=== PATIENT | female | born 1980 | race Caucasian/White ===

== ENCOUNTER 2018-04-22 17:22 | Emergency (ER) | payer OTHER ==
[2018-04-22] MEDS ORDERED: predniSONE 20 MG TABLET PO STA (19:10)
[2018-04-22] MEDS ORDERED: diazePAM 5 MG TABLET PO STA (19:10)
[2018-04-22] MEDS ORDERED: HYDROcod/ACETAM 5/325 MG TABLET PO STA (19:10)
--- NOTE | 2018-04-22 19:12 | ED Physician Documentation ---
History of Present Illness - Stated complaint Stated Complaint: BILAT ARM NUMBNESS/NK PX - Chief complaint Chief Complaint: General - Additonal information Additional information: 37-year-old female with a history of chronic neck pain with herniated disc and radicular symptoms presents to the emergency department with complaints of pain and radicular symptoms. The patient reports her typical pain which is slightly worse than normal over the past several days. The patient reports her typical pain that radiates into her bilateral deltoids. The radicular symptoms occur intermittently. The patient denies fever, motor weakness, muscle loss, acute injury or relieving factors. Symptoms are described as moderate. The patient scheduled to see primary care tomorrow. The patient recently had an MRI of her neck. The patient is also going to be starting physical therapy. No other associated symptoms. No lower extremity symptoms Review of Systems Constitutional: denies: Fever, Chills Eyes: denies: Loss of vision, Decreased vision Ears: denies: Ear pain Nose: denies: Congestion Throat: denies: Sore throat Cardiac: denies: Chest pain / pressure Respiratory: denies: Cough : denies: Dysuria Musculoskeletal: reports: Neck pain. denies: Extremity pain Neurologic: reports: Numbness. denies: Generalized weakness, Focal weakness, Difficulty speaking, Near syncope, Confused, Head injury PD PAST MEDICAL HISTORY - Past Medical History Musculoskeletal: Other Other Past Medical History: neck pain - Past Surgical History Past Surgical History: No - Present Medications Home Medications: Ambulatory Orders Medication Instructions Recorded Confirmed Cyclobenzaprine [Flexeril] 10 mg PO TID PRN #20 tablet 04/22/18 HYDROcod/ACETAM 5/325 [[place] 5/325] 1 each PO Q6H PRN #15 tablet 04/22/18 predniSONE [Prednisone] 40 mg PO DAILY 4 Days #8 tablet 04/22/18 - Allergies Allergies/Adverse Reactions: Allergies Allergy/AdvReac Type Severity Reaction Status Date / Time No Known Drug Allergies Allergy Verified 04/22/18 19:19 - Social History Does the pt smoke?: Yes Smoking Status: Current every day smoker Does the pt drink ETOH?: No Does the pt have substance abuse?: No - Immunizations Immunizations are current?: Yes PD ED PE NORMAL - General General: Alert and oriented X 3, No acute distress - HEENT HEENT: Atraumatic, PERRL, EOMI, Ears normal - Neck Neck: Supple, no meningeal sign, No bony TTP, Other (The patient has tenderness to palpation in the paraspinal muscles of the neck, there is no midline tenderness and the patient appears to have normal range of motion of the neck. There is no swelling. There is no edematous changes, there is no erythematous changes. 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 The patient has normal lower extremity strength and normal sensation to light touch) Results - Vitals Vitals: Vital Signs - 24 hr 04/22/18 04/22/18 17:24 19:32 Temperature 36.6 C 36.5 C Heart Rate 110 H 88 Respiratory 14 16 Rate Blood Pressure 132/80 H 113/83 H O2 Saturation 100 98 Oxygen O2 Source Room air PD MEDICAL DECISION MAKING - ED course ED course: The patient has a history of recurrent cervical pain and radiculopathy. Presently there is no evidence of acute cauda equina which would necessitate emergent MRI. I did offer to have a CT scan performed but the patient declined. The patient is requesting symptomatic therapy and reports that she is following up with primary care tomorrow. I recommended a repeat MRI as an outpatient. The patient understands and agrees. I discussed warning signs and recommended returning to the emergency department immediately for worsening or any concerns - Sepsis Event Vital Signs: Vital Signs - 24 hr 04/22/18 04/22/18 17:24 19:32 Temperature 36.6 C 36.5 C Heart Rate 110 H 88 Respiratory 14 16 Rate Blood Pressure 132/80 H 113/83 H O2 Saturation 100 98 Oxygen O2 Source Room air Departure - Departure Disposition: 01 Home, Self Care Clinical Impression: Cervical radiculopathy Condition: Good Instructions: ED Cervical Radiculopathy Follow-Up: ANGELICA ANDRES DO [Primary Care Provider] - Tomorrow Prescriptions: Cyclobenzaprine [Flexeril] 10 mg PO TID PRN #20 tablet PRN Reason: Spasms HYDROcod/ACETAM 5/325 [[place] 5/325] 1 each PO Q6H PRN #15 tablet PRN Reason: Pain predniSONE [Prednisone] 40 mg PO DAILY 4 Days #8 tablet Comments: Please return to the emergency department for worsening symptoms or any concerns Discharge Date/Time: 04/22/18 19:33
[2018-04-22 19:33] VITALS: BP 113/83
== END 2018-04-22 19:33 | disposition home or self-care (01) ==
LOC: ED 17:22
DX: M54.12 Radiculopathy, cervical region (principal); F17.200 Nicotine dependence, unspecified, uncomplicated
CPT/HCPCS: 99283; A9270; J7512

== ENCOUNTER 2019-08-05 09:00 | Emergency (ER) | payer OTHER ==
[2019-08-05 09:09] VITALS: BP 109/72
--- NOTE | 2019-08-05 09:43 | ED Physician Documentation ---
History of Present Illness - Stated complaint Stated Complaint: BACK PX - Chief complaint Chief Complaint: Back Pain - Additonal information Additional information: This is a 39-year-old female with a history of back pain as well as herniated disks who presents with increased back pain. Yesterday she was brushing her teeth and she bent forward and she felt a pain and spasming in her right lower back/sacral area. The pain is worse when she does twisting movements or leans forward. And yesterday did radiate down her leg towards her foot and she had a little tingling in her foot, though this is resolved. She denies weakness. Worse with walking. No dysuria, no abdominal pain. No bowel or bladder incontinence or difficulty using the bathroom. She denies any history of cancer or bony lesions. This feels very similar to the back pain she had the past which responded well to conservative care. Review of Systems Constitutional: denies: Fever Musculoskeletal: reports: Back pain PD PAST MEDICAL HISTORY - Past Medical History Musculoskeletal: Other Other Past Medical History: Cervical disc herniation - Past Surgical History Past Surgical History: No - Present Medications Home Medications: Ambulatory Orders Medication Instructions Recorded Confirmed Cyclobenzaprine [Flexeril] 10 mg PO TID PRN #20 tablet 04/22/18 HYDROcod/ACETAM 5/325 [[place] 5/325] 1 each PO Q6H PRN #15 tablet 04/22/18 predniSONE [Prednisone] 40 mg PO DAILY 4 Days #8 tablet 04/22/18 Lidocaine Patch 5% [Lidoderm Patch] 1 each TOP DAILY PRN #7 patch 08/05/19 methocarbamoL [Methocarbamol] 500 mg PO TID PRN #15 tablet 08/05/19 - Allergies Allergies/Adverse Reactions: Allergies Allergy/AdvReac Type Severity Reaction Status Date / Time No Known Drug Allergies Allergy Verified 08/05/19 09:06 - Social History Does the pt smoke?: Yes Smoking Status: Current every day smoker Does the pt drink ETOH?: No Does the pt have substance abuse?: No - Immunizations Immunizations are current?: Yes PD ED PE NORMAL - Vitals Vital signs reviewed: Yes - General General: Alert and oriented X 3, No acute distress - HEENT HEENT: PERRL - Neck Neck: Supple, no meningeal sign - Cardiac Cardiac: RRR, No murmur - Respiratory Respiratory: Clear bilaterally - Abdomen Abdomen: Soft, Non distended - Back Back: Other (Normal external appearance, no lesions. No midline tenderness palpation in the right L5 region there is paraspinous tenderness. Cross straight leg raise test is positive for pain rating down the back. 5 out of 5 strength with ankle dorsiflexion plantarflexion hip flexion knee extension bilaterally. Sensation intact light touch overall all lower extremities. Pt ambulates independently with narrow based gait.) - Derm Derm: Warm and dry - Extremities Extremities: No deformity - Neuro Neuro: Alert and oriented X 3, No motor deficit, No sensory deficit, Normal speech - Psych Psych: Normal mood, Normal affect Results - Vitals Vitals: Vital Signs - 24 hr 08/05/19 09:06 Temperature 36.5 C Heart Rate 105 H Respiratory 14 Rate Blood Pressure 109/72 O2 Saturation 100 Oxygen O2 Source Room air PD MEDICAL DECISION MAKING - ED course ED course: Patient presents with back pain after a twisting type event. This is similar to past back pain which is responded well to conservative treatment. She has no red flagsno history of cancer, no bowel bladder symptoms, her neurologic exam is normal, she has no signs of infection, her age is <50, she has no midline tenderness or history of trauma. No urinary or abdominal symptoms. I discussed a trial of supportive care for her back discomfort, she has Flexeril at home, so we will try methocarbamol, and explained the she should not combine the methocarbamol and the Flexeril. I also recommended close primary care follow-up and I reviewed return precautions with the patient, who was in agreement and was discharged home. Departure - Departure Disposition: 01 Home, Self Care Clinical Impression: Back pain Qualifiers: Back pain location: low back pain Chronicity: acute Back pain laterality: right Sciatica presence: with sciatica Sciatica laterality: sciatica of right side Qualified Code(s): M54.41 - Lumbago with sciatica, right side Condition: Good Instructions: ED Neck Back Pain General Follow-Up: TOM SELLERS MD [Primary Care Provider] - Prescriptions: Lidocaine Patch 5% [Lidoderm Patch] 1 each TOP DAILY PRN #7 patch PRN Reason: Pain methocarbamoL [Methocarbamol] 500 mg PO TID PRN #15 tablet PRN Reason: Pain Comments: You were seen today for back pain. You may use either naproxen or ibuprofen every 6 hours as prescribed. You may also use 650 mg of Tylenol every 6 hours as prescribed. Try the lidocaine patches, and the methocarbamol. Do not combine methocarbamol and Flexeril together at the same time, as these can be sedating. If you are having any new or concerning symptoms such as fever, difficulty using the bathroom, or weakness in your leg, return to the emergency department. Otherwise please follow-up with your primary care provider. Forms: Activity restrictions Discharge Date/Time: 08/05/19 10:00
== END 2019-08-05 10:00 | disposition home or self-care (01) ==
LOC: ED 09:00
DX: M54.41 Lumbago with sciatica, right side (principal); F17.200 Nicotine dependence, unspecified, uncomplicated
CPT/HCPCS: 99282; 99284